=== PATIENT | female | born 1985 | race Caucasian/White ===

== ENCOUNTER 2020-06-03 18:15 | Emergency (ER) | payer OTHER, MEDICAID ==
[2020-06-03 19:54] LABS: #Basophils 0.1 10x3/uL (0.0-0.2); #Eosinphils 0.2 10x3/uL (0.0-0.5); #Monocytes 0.5 10x3/uL (0.0-1.1); #Neutrophils 5.4 10x3/uL (1.5-8.4); %Basophils 0.5 % (0.0-2.0); %Eosinophils 1.8 % (0.0-6.0); %Lymphocytes 34.1 % (18.0-47.0); %Monocytes 5.1 % (0.0-10.0); %Neutrophils 58.2 % (40.0-75.0); Hemoglobin 11.7 g/dL (12.0-15.5); Mean Corpuscular HGB CONC 33.1 g/dL (32.0-36.0); Mean Corpuscular Hemoglobin 30.3 pg (27.0-33.0); Mean Corpuscular Volume 91.7 fl (81.6-98.3); Mean Platelet Volume 10.1 fl (7.4-10.4); Platelet Count 308 10x3/uL (150-450); RBC Distribution Width 12.8 % (11.5-14.5); Red Blood Cell (RBC) Count 3.86 10x6/uL (3.90-5.03); White Blood Cell (WBC) Count 9.2 10x3/uL (3.5-10.5)
== END 2020-06-03 20:43 | disposition home or self-care (01) ==
LOC: CSHERS 18:15
DX: O20.0 Threatened abortion (principal); O10.911 Unspecified pre-existing hypertension complicating pregnancy, first trimester; Z3A.08 8 weeks gestation of pregnancy
CPT/HCPCS: 36415; 76856; 84702; 85025; 86900; 86901

== ENCOUNTER 2020-06-15 18:33 | Emergency (ER) | payer MEDICAID, OTHER | END 2020-06-15 20:25 | disposition left against medical advice (07) | LOC: CSHERS 18:33 | DX: Z53.21 Procedure and treatment not carried out due to patient leaving prior to being seen by health care provider (principal) ==

== ENCOUNTER 2020-06-16 18:16 | Emergency (ER) | payer OTHER ==
[2020-06-16] MEDS ORDERED: Lorazepam 1 MG TAB ONE (19:21)
[2020-06-16] MEDS ORDERED: Ondansetron PF 4 MG/2 ML Vial ONE (19:21)
[2020-06-16 20:02] LABS: #Basophils 0.1 10x3/uL (0.0-0.2); #Eosinphils 0.2 10x3/uL (0.0-0.5); #Monocytes 0.5 10x3/uL (0.0-1.1); %Basophils 0.6 % (0.0-2.0); %Eosinophils 1.8 % (0.0-6.0); %Lymphocytes 33.4 % (18.0-47.0); %Monocytes 5.3 % (0.0-10.0); %Neutrophils 58.7 % (40.0-75.0); Hemoglobin 11.5 g/dL (12.0-15.5); Mean Corpuscular HGB CONC 33.1 g/dL (32.0-36.0); Mean Corpuscular Hemoglobin 30.9 pg (27.0-33.0); Mean Corpuscular Volume 93.3 fl (81.6-98.3); Mean Platelet Volume 10.7 fl (7.4-10.4); Platelet Count 282 10x3/uL (150-450); RBC Distribution Width 12.7 % (11.5-14.5); Red Blood Cell (RBC) Count 3.72 10x6/uL (3.90-5.03); White Blood Cell (WBC) Count 8.5 10x3/uL (3.5-10.5)
[2020-06-16 20:04] LABS: ALT (SGPT) 11 U/L (8-55); AST (SGOT) 18 U/L (5-34); Albumin 4.3 g/dL (3.5-5.0); Alkaline Phosphatase 89 U/L (40-110); Anion Gap 17 mmol/L (10-20); BUN (Urea Nitrogen) 11 mg/dL (7.0-18.7); Bilirubin, Total 0.2 mg/dL (0.2-1.2); CRP (Inflammatory) Less than 0.50 mg/dL (= or < 0.5); Calc. Creatinine Clearance 0 mL/min (70-130); Calcium 9.2 mg/dL (7.8-10.44); Carbon Dioxide 21 mmol/L (22-29); Chloride 106 mmol/L (98-107); Globulin 3.5 g/dL (2.4-3.5); Glucose 94 mg/dL (70-105); Potassium 3.9 mmol/L (3.5-5.1); Protein, Total 7.8 g/dL (6.0-8.3); Sodium 140 mmol/L (136-145)
[2020-06-16 20:18] LABS: Bilirubin Neg (Negative); Blood, Urine 25 (Negative); Clarity Clear (Clear); Glucose, Urine (Dipstick) Normal (Negative); Ketone, Urine Negative (Negative); Leukocyte Negative (Negative); Nitrite Negative (Negative); Protein, Urine (Dipstick) Negative (Neg-Trace); Specific Gravity, Urine 1.025 (1.002-1.036); Urobilinogen Normal mg/dL (Less than 2)
[2020-06-16 20:51] LABS: RBC/HPF 0-3 HPF (0-3); Squamous Epithelial 0-3 HPF (0-3); WBC/HPF None Seen HPF (0-3)
[2020-06-16 20:52] LABS: Calcium Oxalate Crystals Rare HPF (None Seen)
[2020-06-16 21:23] LABS: Platelet Morphology Comment Appears Adequate
[2020-06-16] MEDS ORDERED: cefTRIAXone\\ROCEPHIN 500 MG VIAL ONE (22:17)
[2020-06-17 22:07] LABS: GC by PCR Not Detected (NotDetected)
[2020-06-17 22:08] LABS: Chlamydia by PCR Not Detected (NotDetected)
== END 2020-06-16 22:40 | disposition home or self-care (01) ==
LOC: CSHERS 18:16
DX: O03.9 Complete or unspecified spontaneous abortion without complication (principal); I10 Essential (primary) hypertension; F17.210 Nicotine dependence, cigarettes, uncomplicated; Z79.899 Other long term (current) drug therapy
CPT/HCPCS: 36415; 80053; 81003; 81015; 83605; 84702; 85025; 86140; 87040; 87480; 87491; 87510; 87591; 87660; 96365; 96375; J0696; J2405

== ENCOUNTER 2021-03-17 13:00 | Emergency (ER) | payer MEDICAID, OTHER ==
[2021-03-17] MEDS ORDERED: Acetaminophen 500 MG TAB ONE (16:46)
[2021-03-17] MEDS ORDERED: Ibuprofen 200 MG TAB ONE ×2 (16:46→16:56)
[2021-03-18 12:05] LABS: SARS-CoV-2 PCR by NAA DETECTED (NotDetected)
== END 2021-03-17 16:55 | disposition home or self-care (01) ==
LOC: CSHERS 13:00
DX: U07.1 COVID-19 (principal); I10 Essential (primary) hypertension; F17.210 Nicotine dependence, cigarettes, uncomplicated
CPT/HCPCS: 71045; U0003; U0005

== ENCOUNTER 2021-07-09 10:12 | Emergency (ER) | payer OTHER ==
[2021-07-09] MEDS ORDERED: Ketorolac Tromethamine 30 MG/ML VIAL ONE ×2 (10:45→15:22)
[2021-07-09 10:59] LABS: Hemoglobin 10.7 g/dL (12.0-15.5); Mean Corpuscular HGB CONC 33.2 g/dL (32.0-36.0); Mean Corpuscular Hemoglobin 30.7 pg (27.0-33.0); Mean Corpuscular Volume 92.3 fl (81.6-98.3); Mean Platelet Volume 9.7 fl (7.4-10.4); Platelet Count 494 10x3/uL (150-450); RBC Distribution Width 12.9 % (11.5-14.5); Red Blood Cell (RBC) Count 3.49 10x6/uL (3.90-5.03); White Blood Cell (WBC) Count 31.1 10x3/uL (3.5-10.5)
[2021-07-09 11:01] LABS: MDiff Complete? YES
[2021-07-09 11:06] LABS: BHCG - Serum POSITIVE (NEGATIVE); Pregs Control Background? CLEAR/WHITE (CLR/WHITE); Pregs Control Bar Appear? YES (CONTROL BAR)
[2021-07-09 11:13] LABS: ALT (SGPT) 20 U/L (8-55); AST (SGOT) 17 U/L (5-34); Alkaline Phosphatase 64 U/L (40-110); Anion Gap 16 mmol/L (10-20); BUN (Urea Nitrogen) 19 mg/dL (7.0-18.7); Bilirubin, Total 0.5 mg/dL (0.2-1.2); Calc. Creatinine Clearance 0 mL/min (70-130); Calcium 9.2 mg/dL (7.8-10.44); Carbon Dioxide 23 mmol/L (22-29); Chloride 101 mmol/L (98-107); Globulin 3.2 g/dL (2.4-3.5); Glucose 114 mg/dL (70-105); Lipase 12 U/L (8-78); Potassium 4.4 mmol/L (3.5-5.1); Protein, Total 7.2 g/dL (6.0-8.3); Sodium 136 mmol/L (136-145)
[2021-07-09 11:24] LABS: Lymphocytes 12 % (21-51); Monocytes 4 % (0-10); Neutrophil 84 % (42-75)
[2021-07-09 11:25] LABS: Platelet Morphology Comment Appears Increased; RBC Morphology Normal
[2021-07-09] MEDS ORDERED: Fentanyl 100 MCG/2 ML VIAL ONE ×3 (11:46→15:55)
[2021-07-09] MEDS ORDERED: Midazolam HCl 2 mg/2 ml Vial ONE (13:29)
[2021-07-09] MEDS ORDERED: PROPOFOL 20 ML ONE (13:29)
[2021-07-09] MEDS ORDERED: Lidocaine 1% PF 5 ML VIAL ONE ×2 (13:29→15:18)
[2021-07-09] MEDS ORDERED: Rocuronium Bromide 10 MG/ML (10ML VIAL) ONE (13:30)
[2021-07-09] MEDS ORDERED: Succinylcholine 200 MG/10 ml SYRINGE FS ONE (13:30)
[2021-07-09 13:32] LABS: SARS-CoV-2 NAA Rapid Test Not Detected (NotDetected)
[2021-07-09] MEDS ORDERED: EPINEPHrine 1 MG/ML AMP ONE (13:40)
[2021-07-09] MEDS ORDERED: Bupivacaine 0.25% HCL 30 ML VIAL ONE (13:41)
[2021-07-09] MEDS ORDERED: PHENYLEPHRINE-NS 100 MCG/ML 10 ML SYRINGE ONE (14:22)
[2021-07-09] MEDS ORDERED: Glycopyrrolate 0.2 MG/ML 5 ML SYRINGE ONE (15:24)
[2021-07-09] MEDS ORDERED: Silver Nitrate Application 1 EACH ONE (15:25)
[2021-07-09 16:26] LABS: Hemoglobin 9.2 g/dL (12.0-15.5); Platelet Count 352 10x3/uL (150-450)
== END 2021-07-09 13:25 | disposition admitted as inpatient to this hospital (09) ==
LOC: CSHERS 10:12
DX: R10.9 Unspecified abdominal pain (principal); Z20.822 Contact with and (suspected) exposure to COVID-19; I10 Essential (primary) hypertension; F17.210 Nicotine dependence, cigarettes, uncomplicated
CPT/HCPCS: 36415; 74176; 76856; 80053; 83690; 84702; 84703; 85025; 86850; 86900; 86901; 88305; 93005; 96361; 96374; 96375; J0171; J1885; J2250; J2704; J3010; S0020; U0002

== ENCOUNTER 2021-07-13 19:40 | Emergency (ER) | payer OTHER ==
[~2021-07-13 19:40] MED LIST: Iopamidol 300 61% 100 ML VIAL FS ONE
[2021-07-13] MEDS ORDERED: Ketorolac Tromethamine 30 MG/ML VIAL ONE (20:22)
[2021-07-13 21:01] LABS: ALT (SGPT) 32 U/L (8-55); AST (SGOT) 22 U/L (5-34); Alkaline Phosphatase 75 U/L (40-110); Anion Gap 14 mmol/L (10-20); BUN (Urea Nitrogen) 9 mg/dL (7.0-18.7); Bilirubin, Total 0.3 mg/dL (0.2-1.2); Calc. Creatinine Clearance 0 mL/min (70-130); Calcium 9.6 mg/dL (7.8-10.44); Carbon Dioxide 27 mmol/L (22-29); Chloride 105 mmol/L (98-107); Globulin 3.3 g/dL (2.4-3.5); Glucose 103 mg/dL (70-105); Protein, Total 7.3 g/dL (6.0-8.3); Sodium 142 mmol/L (136-145)
[2021-07-13 21:07] LABS: #Basophils 0.1 10x3/uL (0.0-0.2); #Eosinphils 0.1 10x3/uL (0.0-0.5); #Monocytes 0.5 10x3/uL (0.0-1.1); %Basophils 0.5 % (0.0-2.0); %Eosinophils 1.2 % (0.0-6.0); %Lymphocytes 23.1 % (18.0-47.0); %Neutrophils 69.8 % (40.0-75.0); Hemoglobin 7.3 g/dL (12.0-15.5); Mean Corpuscular HGB CONC 32.7 g/dL (32.0-36.0); Mean Corpuscular Hemoglobin 30.9 pg (27.0-33.0); Mean Corpuscular Volume 94.5 fl (81.6-98.3); Mean Platelet Volume 9.4 fl (7.4-10.4); Platelet Count 323 10x3/uL (150-450); RBC Distribution Width 12.8 % (11.5-14.5); Red Blood Cell (RBC) Count 2.36 10x6/uL (3.90-5.03)
[2021-07-13 21:11] LABS: Bilirubin Neg (Negative); Blood, Urine 250 (Negative); Clarity Clear (Clear); Glucose, Urine (Dipstick) Normal (Negative); Ketone, Urine Negative (Negative); Leukocyte 25 (Negative); Nitrite Negative (Negative); Protein, Urine (Dipstick) Negative (Neg-Trace); Specific Gravity, Urine 1.005 (1.002-1.036); Urobilinogen Normal mg/dL (Less than 2)
[2021-07-13 21:16] LABS: WBC/HPF 0-3 HPF (0-3)
[2021-07-13 21:17] LABS: Bacteria/HPF Rare-Few HPF (None Seen)
== END 2021-07-13 22:55 | disposition home or self-care (01) ==
LOC: CSHERS 19:40
DX: G89.18 Other acute postprocedural pain (principal); R10.9 Unspecified abdominal pain; D64.9 Anemia, unspecified; I10 Essential (primary) hypertension; F17.210 Nicotine dependence, cigarettes, uncomplicated
CPT/HCPCS: 36415; 74177; 80053; 81003; 81015; 84702; 85025; 86850; 86900; 86901; 96374; J1885; Q9967

== ENCOUNTER 2021-10-17 11:39 | Emergency (ER) | payer OTHER ==
[2021-10-17] MEDS ORDERED: Lidocaine Viscous Sol 2% 15 ml UD Cup ONE (14:08)
[2021-10-17] MEDS ORDERED: Acetaminophen 325 MG TAB ONE (14:36)
[2021-10-17] MEDS ORDERED: HYDROcodone/Acetaminophen 5/325 mg Tablet ONE (14:36)
[2021-10-17] MEDS ORDERED: Ketorolac Tromethamine 30 MG/ML VIAL ONE (14:37)
== END 2021-10-17 16:18 | disposition home or self-care (01) ==
LOC: CSHERS 11:39
DX: K02.9 Dental caries, unspecified (principal); I10 Essential (primary) hypertension; F17.210 Nicotine dependence, cigarettes, uncomplicated; Z79.899 Other long term (current) drug therapy
CPT/HCPCS: 96372; 99282; J1885

== ENCOUNTER 2022-04-06 13:40 | Emergency (ER) | payer OTHER ==
[2022-04-06 14:41] LABS: #Basophils 0.1 10x3/uL (0.0-0.2); #Eosinphils 0.3 10x3/uL (0.0-0.5); #Monocytes 0.5 10x3/uL (0.0-1.1); #Neutrophils 4.3 10x3/uL (1.5-8.4); %Basophils 0.7 % (0.0-2.0); %Eosinophils 3.9 % (0.0-6.0); %Lymphocytes 31.8 % (18.0-47.0); %Neutrophils 57.5 % (40.0-75.0); Hemoglobin 12.2 g/dL (12.0-15.5); Mean Corpuscular HGB CONC 34.3 g/dL (32.0-36.0); Mean Corpuscular Hemoglobin 30.3 pg (27.0-33.0); Mean Corpuscular Volume 88.3 fl (81.6-98.3); Mean Platelet Volume 10.4 fl (7.4-10.4); Platelet Count 303 10x3/uL (150-450); RBC Distribution Width 13.7 % (11.5-14.5); Red Blood Cell (RBC) Count 4.03 10x6/uL (3.90-5.03); White Blood Cell (WBC) Count 7.5 10x3/uL (3.5-10.5)
[2022-04-06 14:42] LABS: BHCG - Serum Negative (NEGATIVE); Pregs Control Background? CLEAR/WHITE (CLR/WHITE); Pregs Control Bar Appear? YES (CONTROL BAR)
[2022-04-06 14:51] LABS: ALT (SGPT) 18 U/L (8-55); AST (SGOT) 15 U/L (5-34); Albumin 4.4 g/dL (3.5-5.0); Alkaline Phosphatase 73 U/L (40-110); Anion Gap 14 mmol/L (10-20); BUN (Urea Nitrogen) 8 mg/dL (7.0-18.7); Bilirubin, Total 0.3 mg/dL (0.2-1.2); CK (CPK) 48 U/L (29-168); Calc. Creatinine Clearance 0 mL/min (70-130); Calcium 9.5 mg/dL (7.8-10.44); Carbon Dioxide 23 mmol/L (22-29); Chloride 108 mmol/L (98-107); Estimated GFR 87; Globulin 2.9 g/dL (2.4-3.5); Glucose 97 mg/dL (70-105); Lipase 21 U/L (8-78); Potassium 4.3 mmol/L (3.5-5.1); Protein, Total 7.3 g/dL (6.0-8.3); Sodium 141 mmol/L (136-145)
== END 2022-04-06 15:45 | disposition home or self-care (01) ==
LOC: CSHERS 13:40
DX: U07.1 COVID-19 (principal); I10 Essential (primary) hypertension; F17.210 Nicotine dependence, cigarettes, uncomplicated
CPT/HCPCS: 36415; 71045; 80053; 82550; 83690; 84484; 84703; 85025; 85379; 93005

== ENCOUNTER 2022-10-25 09:06 | Inpatient (IN) | payer OTHER ==
[2022-10-25 09:37] LABS: Bilirubin Neg (Negative); Blood, Urine 150 (Negative); Glucose, Urine (Dipstick) Normal (Negative); Ketone, Urine Negative (Negative); Leukocyte 500 (Negative); Nitrite Negative (Negative); Protein, Urine (Dipstick) 30 mg/dl (Neg-Trace); Specific Gravity, Urine 1.005 (1.005-1.030); Urobilinogen Normal mg/dL (Less than 2)
[2022-10-25 09:46] LABS: Clarity Hazy (Clear)
[2022-10-25 09:47] LABS: CAUTI Indications for Culture Dysuria,urgency,freq; WBC/HPF 21-50 HPF (0-3)
[2022-10-25 09:48] LABS: Bacteria/HPF Rare-Few HPF (None Seen); Squamous Epithelial 0-3 HPF (0-3)
[2022-10-25 09:49] LABS: Urine Culture Reflex Yes Yes
[2022-10-25] MEDS ORDERED: Iopamidol 300 61% 100 ML VIAL FS ONE (10:04)
[2022-10-25 10:05] LABS: Hematocrit 32.8 % (34.9-44.5); Hemoglobin 11.1 g/dL (12.0-15.5); Mean Corpuscular HGB CONC 33.8 g/dL (32.0-36.0); Mean Corpuscular Hemoglobin 29.8 pg (27.0-33.0); Mean Corpuscular Volume 87.9 fl (81.6-98.3); Mean Platelet Volume 10.4 fl (7.4-10.4); Platelet Count 290 10x3/uL (150-450); RBC Distribution Width 13.3 % (11.5-14.5); Red Blood Cell (RBC) Count 3.73 10x6/uL (3.90-5.03); White Blood Cell (WBC) Count 15.2 10x3/uL (3.5-10.5)
[2022-10-25 10:08] LABS: BHCG - Serum Negative (NEGATIVE); Pregs Control Background? CLEAR/WHITE (CLR/WHITE); Pregs Control Bar Appear? YES (CONTROL BAR)
[2022-10-25] MEDS ORDERED: Ondansetron PF 4 MG/2 ML Vial ONE (10:15)
[2022-10-25] MEDS ORDERED: cefTRIAXone (ROCEPHIN) 1 GM VIAL ONE (10:16)
[2022-10-25] MEDS ORDERED: Ketorolac Tromethamine 30 MG/ML VIAL ONE (10:16)
[2022-10-25 10:21] LABS: ALT (SGPT) 156 U/L (8-55); AST (SGOT) 122 U/L (5-34); Albumin 3.3 g/dL (3.5-5.0); Alkaline Phosphatase 271 U/L (40-110); Anion Gap 15 mmol/L (10-20); BUN (Urea Nitrogen) 9 mg/dL (7.0-18.7); Bilirubin, Total 1.1 mg/dL (0.2-1.2); Calc. Creatinine Clearance 0 mL/min (70-130); Calcium 9.1 mg/dL (7.8-10.44); Carbon Dioxide 21 mmol/L (22-29); Chloride 103 mmol/L (98-107); Estimated GFR 77; Globulin 3.7 g/dL (2.4-3.5); Glucose 128 mg/dL (70-105); Potassium 3.2 mmol/L (3.5-5.1); Sodium 136 mmol/L (136-145)
[2022-10-25 10:24] LABS: MDiff Complete? YES
[2022-10-25 10:28] LABS: Band 3 % (5-11); Lymphocytes 15 % (21-51); Monocytes 8 % (0-10); Neutrophil 72 % (42-75); Reactive Lymphocytes 2 % (0-10)
[2022-10-25 10:34] LABS: Dohle Bodies SLIGHT; Large Platelets SLIGHT (None Seen); Platelet Adequacy Comment Appears Adequate; RBC Morph Comment Within Normal Limits
[2022-10-25] MEDS ORDERED: Potassium Chloride 20 MEQ TAB PO SCH ×2 (15:00→18:00)
[2022-10-25 15:25] VITALS: BMI 34.7
[2022-10-25] MEDS: traMADol HCl 50 MG TAB PO PRN ×2 (15:36→21:42)
[2022-10-25] MEDS: Acetaminophen 325 MG TAB PO PRN ×2 (15:36→20:12)
[2022-10-25] MEDS: Ondansetron ODT 4 MG TAB PO PRN ×2 (15:39→21:44)
[2022-10-25] MEDS: Sodium Chloride 0.9% 1,000 ML IV SCH (15:39)
[2022-10-25] MEDS ORDERED: Piperacillin/Tazobactam 3.375 GM in Sodium Chloride 0.9% 100 ML IVPB SCH (16:00)
[2022-10-25] MEDS ORDERED: Electrolyte Replacement Protocol 1 EACH FS SCH (17:00)
[2022-10-25] MEDS: Piperacillin/Tazobactam 3.375 GM in Sodium Chloride 0.9% 100 ML IVPB SCH (20:07)
[2022-10-26] MEDS: Acetaminophen 325 MG TAB PO PRN ×4 (00:17→18:26)
[2022-10-26] MEDS: traMADol HCl 50 MG TAB PO PRN ×2 (02:44→08:57)
[2022-10-26] MEDS: Ondansetron ODT 4 MG TAB PO PRN ×2 (02:50→08:58)
[2022-10-26 03:48] LABS: Phosphorus 2.8 mg/dL (2.3-4.7)
[2022-10-26 03:50] LABS: ALT (SGPT) 133 U/L (8-55); AST (SGOT) 90 U/L (5-34); Albumin 2.9 g/dL (3.5-5.0); Alkaline Phosphatase 265 U/L (40-110); Anion Gap 14 mmol/L (10-20); BUN (Urea Nitrogen) 8 mg/dL (7.0-18.7); Bilirubin, Total 0.7 mg/dL (0.2-1.2); Calc. Creatinine Clearance 113 mL/min (70-130); Calcium 8.7 mg/dL (7.8-10.44); Carbon Dioxide 19 mmol/L (22-29); Chloride 108 mmol/L (98-107); Estimated GFR 73; Globulin 3.4 g/dL (2.4-3.5); Glucose 140 mg/dL (70-105); Lipase 10 U/L (8-78); Magnesium 1.8 mg/dL (1.6-2.6); Potassium 3.5 mmol/L (3.5-5.1); Protein, Total 6.3 g/dL (6.0-8.3); Sodium 137 mmol/L (136-145)
[2022-10-26 03:58] LABS: Hematocrit 30.4 % (34.9-44.5); Hemoglobin 10.2 g/dL (12.0-15.5); Mean Corpuscular HGB CONC 33.6 g/dL (32.0-36.0); Mean Corpuscular Hemoglobin 29.8 pg (27.0-33.0); Mean Corpuscular Volume 88.9 fl (81.6-98.3); Platelet Count 278 10x3/uL (150-450); Red Blood Cell (RBC) Count 3.42 10x6/uL (3.90-5.03); White Blood Cell (WBC) Count 13.5 10x3/uL (3.5-10.5)
[2022-10-26 04:19] LABS: MDiff Complete? YES
[2022-10-26 04:25] LABS: Band 15 % (5-11); Lymphocytes 21 % (21-51); Monocytes 7 % (0-10); Neutrophil 57 % (42-75)
[2022-10-26 04:45] LABS: Platelet Adequacy Comment Appears Adequate; RBC Morph Comment Within Normal Limits; Toxic Granulation SLIGHT
[2022-10-26] MEDS: Piperacillin/Tazobactam 3.375 GM in Sodium Chloride 0.9% 100 ML IVPB SCH ×3 (04:50→20:41)
[2022-10-26] MEDS: Sodium Chloride 0.9% 1,000 ML IV SCH ×2 (05:03→16:35)
[2022-10-26] MEDS ORDERED: Potassium Chloride 20 MEQ TAB PO SCH (08:00)
[2022-10-26] MEDS ORDERED: Magnesium 2 GM/50 ML(in water) 2 GM in Premix Bag 1 BAG IVPB SCH (09:00)
[2022-10-26] MEDS ORDERED: Polyethylene Glycol 3350 17 GM Packet PO PRN (14:03)
[2022-10-26] MEDS ORDERED: Morphine 2 MG/ML VIAL SLOW IVP SCH (14:15)
[2022-10-26] MEDS: Ketorolac Tromethamine 30 MG/ML VIAL IVP SCH ×2 (14:19→20:38)
[2022-10-26] MEDS: HYDROcodone/Acetaminophen 5/325 mg Tablet PO PRN (18:27)
[2022-10-26] MEDS ORDERED: 1/2 NS w/KCL 20 mEq 1,000 ML IV SCH ×2 (19:00→19:25)
[2022-10-26] MEDS ORDERED: cloNIDine 0.1 MG TAB PO PRN (19:25)
[2022-10-26] MEDS: Famotidine 20 MG TAB PO SCH (20:40)
[2022-10-26] MEDS: Senokot S 8.6-50 MG TAB PO SCH (20:41)
[2022-10-26] MEDS: Saccharomyces boulardii 250 MG CAP PO SCH (20:50)
[2022-10-26] MEDS: Gabapentin 300 MG CAP PO SCH (20:50)
[2022-10-27] MEDS: Acetaminophen 325 MG TAB PO PRN (02:17)
[2022-10-27] MEDS: HYDROcodone/Acetaminophen 5/325 mg Tablet PO PRN ×3 (02:18→16:36)
[2022-10-27] MEDS: Piperacillin/Tazobactam 3.375 GM in Sodium Chloride 0.9% 100 ML IVPB SCH ×3 (03:54→21:13)
[2022-10-27 05:20] LABS: ALT (SGPT) 141 U/L (8-55); AST (SGOT) 101 U/L (5-34); Albumin 2.6 g/dL (3.5-5.0); Alkaline Phosphatase 282 U/L (40-110); Anion Gap 13 mmol/L (10-20); BUN (Urea Nitrogen) 8 mg/dL (7.0-18.7); Bilirubin, Total 0.6 mg/dL (0.2-1.2); Calc. Creatinine Clearance 138 mL/min (70-130); Calcium 8.4 mg/dL (7.8-10.44); Carbon Dioxide 19 mmol/L (22-29); Chloride 108 mmol/L (98-107); Estimated GFR 93; Globulin 3.3 g/dL (2.4-3.5); Glucose 191 mg/dL (70-105); Magnesium 1.9 mg/dL (1.6-2.6); Potassium 3.4 mmol/L (3.5-5.1); Protein, Total 5.9 g/dL (6.0-8.3); Sodium 137 mmol/L (136-145)
[2022-10-27 05:29] LABS: Hematocrit 27.2 % (34.9-44.5); Hemoglobin 9.1 g/dL (12.0-15.5); Mean Corpuscular HGB CONC 33.5 g/dL (32.0-36.0); Mean Corpuscular Hemoglobin 30.2 pg (27.0-33.0); Mean Corpuscular Volume 90.4 fl (81.6-98.3); Mean Platelet Volume 9.9 fl (7.4-10.4); Platelet Count 263 10x3/uL (150-450); RBC Distribution Width 14.2 % (11.5-14.5); Red Blood Cell (RBC) Count 3.01 10x6/uL (3.90-5.03); White Blood Cell (WBC) Count 10.1 10x3/uL (3.5-10.5)
[2022-10-27 05:30] LABS: MDiff Complete? YES
[2022-10-27 06:19] LABS: Band 1 % (5-11); Eosinophils 2 % (0-10); Lymphocytes 17 % (21-51); Monocytes 5 % (0-10); Neutrophil 75 % (42-75)
[2022-10-27 06:26] LABS: Macrocytosis SLIGHT = 6-15 cells (100X) (0-5/hpf)
[2022-10-27 06:27] LABS: Platelet Adequacy Comment Platelets Normal
[2022-10-27] MEDS ORDERED: Potassium Chloride 20 MEQ TAB PO SCH (08:00)
[2022-10-27] MEDS ORDERED: Magnesium 2 GM/50 ML(in water) 2 GM in Premix Bag 1 BAG IVPB SCH (08:00)
[2022-10-27] MEDS: Famotidine 20 MG TAB PO SCH ×2 (09:50→21:13)
[2022-10-27] MEDS: Gabapentin 300 MG CAP PO SCH ×3 (09:50→21:11)
[2022-10-27] MEDS: cloNIDine 0.1 MG TAB PO SCH ×2 (09:53→21:10)
[2022-10-27] MEDS: Sertraline 100 MG TAB PO SCH (09:54)
[2022-10-27] MEDS: Senokot S 8.6-50 MG TAB PO SCH (09:58)
[2022-10-27] MEDS ORDERED: Acetaminophen 325 MG TAB PO PRN (11:40)
[2022-10-27] MEDS ORDERED: Ibuprofen 200 MG TAB PO PRN (11:40)
[2022-10-27] MEDS: Saccharomyces boulardii 250 MG CAP PO SCH (21:13)
[2022-10-28] MEDS: HYDROcodone/Acetaminophen 5/325 mg Tablet PO PRN ×3 (00:51→16:27)
[2022-10-28] MEDS: Piperacillin/Tazobactam 3.375 GM in Sodium Chloride 0.9% 100 ML IVPB SCH (04:15)
[2022-10-28 04:22] LABS: #Basophils 0.1 10x3/uL (0.0-0.2); #Eosinphils 0.3 10x3/uL (0.0-0.5); #Monocytes 0.6 10x3/uL (0.0-1.1); #Neutrophils 6.6 10x3/uL (1.5-8.4); %Basophils 0.5 % (0.0-2.0); %Eosinophils 2.5 % (0.0-6.0); %Lymphocytes 19.7 % (18.0-47.0); %Monocytes 6.3 % (0.0-10.0); %Neutrophils 67.2 % (40.0-75.0); ALT (SGPT) 148 U/L (8-55); AST (SGOT) 85 U/L (5-34); Albumin 2.8 g/dL (3.5-5.0); Alkaline Phosphatase 287 U/L (40-110); Anion Gap 14 mmol/L (10-20); BUN (Urea Nitrogen) 7 mg/dL (7.0-18.7); Bilirubin, Total 0.5 mg/dL (0.2-1.2); Calc. Creatinine Clearance 138 mL/min (70-130); Calcium 8.8 mg/dL (7.8-10.44); Carbon Dioxide 22 mmol/L (22-29); Chloride 105 mmol/L (98-107); Estimated GFR 93; Globulin 3.8 g/dL (2.4-3.5); Glucose 177 mg/dL (70-105); Hematocrit 28.4 % (34.9-44.5); Hemoglobin 9.2 g/dL (12.0-15.5); Mean Corpuscular HGB CONC 32.4 g/dL (32.0-36.0); Mean Corpuscular Hemoglobin 29.1 pg (27.0-33.0); Mean Corpuscular Volume 89.9 fl (81.6-98.3); Mean Platelet Volume 9.6 fl (7.4-10.4); Platelet Count 376 10x3/uL (150-450); Potassium 4.3 mmol/L (3.5-5.1); Protein, Total 6.6 g/dL (6.0-8.3); RBC Distribution Width 14.2 % (11.5-14.5); Red Blood Cell (RBC) Count 3.16 10x6/uL (3.90-5.03); Sodium 137 mmol/L (136-145); White Blood Cell (WBC) Count 9.8 10x3/uL (3.5-10.5)
[2022-10-28] MEDS: Famotidine 20 MG TAB PO SCH ×2 (08:58→21:36)
[2022-10-28] MEDS: cloNIDine 0.1 MG TAB PO SCH ×2 (08:58→21:37)
[2022-10-28] MEDS: Sertraline 100 MG TAB PO SCH (08:58)
[2022-10-28] MEDS: Gabapentin 300 MG CAP PO SCH ×3 (08:59→21:38)
[2022-10-28] MEDS ORDERED: traMADol HCl 50 MG TAB PO PRN (12:00)
[2022-10-28] MEDS: cefTRIAXone\\ROCEPHIN 2 GM in Sodium Chloride 0.9% 100 ML IVPB SCH (13:13)
[2022-10-28 13:19] LABS: Hemoglobin A1c 5.2 % (4.0-6.0)
[2022-10-28] MEDS: traMADol HCl 50 MG TAB PO PRN (21:37)
[2022-10-28] MEDS: Saccharomyces boulardii 250 MG CAP PO SCH (21:37)
[2022-10-29 04:56] LABS: #Basophils 0.1 10x3/uL (0.0-0.2); #Eosinphils 0.3 10x3/uL (0.0-0.5); #Monocytes 0.8 10x3/uL (0.0-1.1); #Neutrophils 8.5 10x3/uL (1.5-8.4); %Basophils 0.5 % (0.0-2.0); %Eosinophils 2.3 % (0.0-6.0); %Monocytes 6.5 % (0.0-10.0); %Neutrophils 66.5 % (40.0-75.0); Hematocrit 30.5 % (34.9-44.5); Hemoglobin 9.8 g/dL (12.0-15.5); Mean Corpuscular HGB CONC 32.1 g/dL (32.0-36.0); Mean Corpuscular Hemoglobin 29.6 pg (27.0-33.0); Mean Corpuscular Volume 92.1 fl (81.6-98.3); Mean Platelet Volume 9.4 fl (7.4-10.4); Platelet Count 459 10x3/uL (150-450); RBC Distribution Width 14.2 % (11.5-14.5); Red Blood Cell (RBC) Count 3.31 10x6/uL (3.90-5.03); White Blood Cell (WBC) Count 12.8 10x3/uL (3.5-10.5)
[2022-10-29 05:00] LABS: ALT (SGPT) 131 U/L (8-55); AST (SGOT) 58 U/L (5-34); Albumin 3.1 g/dL (3.5-5.0); Alkaline Phosphatase 261 U/L (40-110); Anion Gap 14 mmol/L (10-20); BUN (Urea Nitrogen) 10 mg/dL (7.0-18.7); Bilirubin, Total 0.3 mg/dL (0.2-1.2); Calc. Creatinine Clearance 130 mL/min (70-130); Calcium 9.3 mg/dL (7.8-10.44); Carbon Dioxide 27 mmol/L (22-29); Chloride 101 mmol/L (98-107); Estimated GFR 87; Globulin 4.1 g/dL (2.4-3.5); Glucose 123 mg/dL (70-105); Potassium 4.5 mmol/L (3.5-5.1); Protein, Total 7.2 g/dL (6.0-8.3); Sodium 137 mmol/L (136-145)
[2022-10-29] MEDS: traMADol HCl 50 MG TAB PO PRN ×2 (06:26→13:00)
[2022-10-29] MEDS: cloNIDine 0.1 MG TAB PO SCH (09:00)
[2022-10-29] MEDS: Gabapentin 300 MG CAP PO SCH (09:00)
[2022-10-29] MEDS: Sertraline 100 MG TAB PO SCH (09:00)
[2022-10-29] MEDS: Famotidine 20 MG TAB PO SCH (09:00)
[2022-10-29] MEDS ORDERED: Iopamidol 370 76% 100 ML VIAL ONE (12:18)
[2022-10-29 12:38] VITALS: TEMP 98.3
[2022-10-29 12:59] VITALS: BP 154/92
[2022-10-29] MEDS: cefTRIAXone\\ROCEPHIN 2 GM in Sodium Chloride 0.9% 100 ML IVPB SCH (13:02)
== END 2022-10-29 14:43 | disposition home or self-care (01) | DRG 872 ==
LOC: CSHERS 09:06 → CSHPED 12:24 → OBSVTOIN 10-26 13:48 → CSHTELE 10-27 00:23
PROVIDERS: ADMIT Internal Medicine; ATTEND Family Medicine
DX: A41.51 Sepsis due to Escherichia coli [E. coli] (principal); N10 Acute pyelonephritis; N30.01 Acute cystitis with hematuria; R65.20 Severe sepsis without septic shock; I10 Essential (primary) hypertension; M54.9 Dorsalgia, unspecified; G89.4 Chronic pain syndrome; F41.9 Anxiety disorder, unspecified; F17.210 Nicotine dependence, cigarettes, uncomplicated; E83.42 Hypomagnesemia; E87.6 Hypokalemia; E66.9 Obesity, unspecified; D53.9 Nutritional anemia, unspecified; F32.A Depression, unspecified; Z79.899 Other long term (current) drug therapy; Z98.51 Tubal ligation status; Z82.49 Family history of ischemic heart disease and other diseases of the circulatory system; Z68.34 Body mass index [BMI] 34.0-34.9, adult; R73.9 Hyperglycemia, unspecified
CPT/HCPCS: 36415; 74176; 74177; 76705; 80053; 81001; 83036; 83605; 83690; 83735; 84100; 84703; 85025; 87040; 87077; 87086; 87149; 87186; 93005; 93010; 96361; 96365; 96375; J0696; J1885; J2272; J2405; J2543; J3475; J3480; J3490; J7050; Q0162; Q9967

== ENCOUNTER 2022-11-04 18:26 | Emergency (ER) | payer MEDICAID, OTHER, SELFPAY ==
[2022-11-04] MEDS ORDERED: Morphine 4 MG/ML VIAL ONE (19:35)
[2022-11-04] MEDS ORDERED: LevoFLOXacin 750 mg/D5W 150 ml Premix Bag ONE (19:35)
[2022-11-04] MEDS ORDERED: Morphine 2 MG/ML VIAL ONE (19:35)
[2022-11-04 19:39] LABS: #Basophils 0.1 10x3/uL (0.0-0.2); #Eosinphils 0.1 10x3/uL (0.0-0.5); #Monocytes 0.8 10x3/uL (0.0-1.1); #Neutrophils 10.4 10x3/uL (1.5-8.4); %Eosinophils 0.5 % (0.0-6.0); %Lymphocytes 21.2 % (18.0-47.0); %Monocytes 5.7 % (0.0-10.0); Hematocrit 34.5 % (34.9-44.5); Hemoglobin 11.3 g/dL (12.0-15.5); Mean Corpuscular HGB CONC 32.8 g/dL (32.0-36.0); Mean Corpuscular Volume 91.5 fl (81.6-98.3); Mean Platelet Volume 9.2 fl (7.4-10.4); Platelet Count 874 10x3/uL (150-450); RBC Distribution Width 13.2 % (11.5-14.5); Red Blood Cell (RBC) Count 3.77 10x6/uL (3.90-5.03); White Blood Cell (WBC) Count 14.7 10x3/uL (3.5-10.5)
[2022-11-04 19:53] LABS: BHCG - Serum Negative (NEGATIVE); Pregs Control Background? CLEAR/WHITE (CLR/WHITE); Pregs Control Bar Appear? YES (CONTROL BAR)
[2022-11-04 19:55] LABS: ALT (SGPT) 69 U/L (8-55); AST (SGOT) 40 U/L (5-34); Albumin 4.2 g/dL (3.5-5.0); Alkaline Phosphatase 171 U/L (40-110); Anion Gap 17 mmol/L (10-20); BUN (Urea Nitrogen) 11 mg/dL (7.0-18.7); Bilirubin, Total 0.3 mg/dL (0.2-1.2); Calc. Creatinine Clearance 0 mL/min (70-130); Carbon Dioxide 21 mmol/L (22-29); Chloride 104 mmol/L (98-107); Estimated GFR 85; Globulin 4.9 g/dL (2.4-3.5); Glucose 99 mg/dL (70-105); Potassium 4.1 mmol/L (3.5-5.1); Protein, Total 9.1 g/dL (6.0-8.3); Sodium 138 mmol/L (136-145)
[2022-11-04 20:17] LABS: SARS-CoV-2 NAA Rapid Test Not Detected (NotDetected)
[2022-11-04 21:12] LABS: Bilirubin Neg (Negative); Blood, Urine 10 (Negative); Clarity Clear (Clear); Glucose, Urine (Dipstick) Normal (Negative); Ketone, Urine Negative (Negative); Leukocyte 25 (Negative); Nitrite Negative (Negative); Protein, Urine (Dipstick) 15 mg/dl (Neg-Trace); Urobilinogen Normal mg/dL (Less than 2); pH, Urine 6.5 (5.0-9.0)
[2022-11-04 21:22] LABS: Bacteria/HPF None Seen HPF (None Seen); CAUTI Indications for Culture Pelvic or flank pain; RBC/HPF 0-3 HPF (0-3); Squamous Epithelial 0-3 HPF (0-3); WBC/HPF 0-3 HPF (0-3)
[2022-11-04 21:23] LABS: Urine Culture Reflex No No
[2022-11-04] MEDS ORDERED: Ketorolac Tromethamine 30 MG/ML VIAL ONE (22:24)
== END 2022-11-04 22:20 | disposition home or self-care (01) ==
LOC: CSHERS 18:26
DX: N10 Acute pyelonephritis (principal); R19.7 Diarrhea, unspecified; I10 Essential (primary) hypertension; Z20.822 Contact with and (suspected) exposure to COVID-19
CPT/HCPCS: 74177; 80053; 81001; 84703; 85025; 93005; 96365; 96366; 96375; J1885; J1956; J2270; J2272; Q9967

== ENCOUNTER 2024-01-15 08:31 | Emergency (ER) | payer BC ==
[2024-01-15] MEDS ORDERED: Ketorolac Tromethamine 30 MG (1 mL) VIAL ONE (08:53)
[2024-01-15] MEDS ORDERED: Dexamethasone 10 MG/ML VIAL ONE (08:53)
[2024-01-15] MEDS ORDERED: Benzonatate 100 MG CAP ONE (08:53)
[2024-01-15] MEDS ORDERED: AMOXicillin 250 MG CAP PO SCH (09:15)
[2024-01-15 09:22] LABS: Pregnancy Test - Urine (BHCG) Negative (Negative); Pregu Control Background? CLEAR/WHITE (CLR/WHITE); Pregu Control Bar Appear? YES (CONTROL BAR); Specific Gravity 1.005 (1.002-1.036)
== END 2024-01-15 09:47 | disposition home or self-care (01) ==
LOC: CSHERS 08:31
DX: J02.9 Acute pharyngitis, unspecified (principal); I10 Essential (primary) hypertension
CPT/HCPCS: 81025; 96372; 99283; J1100; J1885